=== PATIENT | female | born 1995 | race Hispanic/Latino ===

== ENCOUNTER 2018-05-02 18:23 | Emergency (ER) | payer OTHER ==
[2018-05-02] MEDS ORDERED: ORPHENADRINE CITRATE 30 MG/ML ML ONE (18:48)
[2018-05-02] MEDS ORDERED: KETOROLAC TROMETHAMINE 30MG/ML ONE (18:48)
== END 2018-05-02 19:27 | disposition home or self-care (01) ==
LOC: EDH 18:23
DX: S39.82XA Other specified injuries of lower back, initial encounter (principal); M62.830 Muscle spasm of back; M54.5 Low back pain; Z98.890 Other specified postprocedural states; V59.49XA Driver of pick-up truck or van injured in collision with other motor vehicles in traffic accident, initial encounter; Y93.89 Activity, other specified; Y92.488 Other paved roadways as the place of occurrence of the external cause; Y99.8 Other external cause status
CPT/HCPCS: 96374; 96375; 99284; J1885; J2360